=== PATIENT | male | born 1995 | race Caucasian/White ===

== ENCOUNTER 2022-09-01 19:33 | Emergency (ER) | payer OTHER, SELFPAY ==
[2022-09-01 19:50] VITALS: BP 151/97; PULSE 66; RESP 16; TEMP 36.7; O2SAT 98; BMI 24.9
--- NOTE | 2022-09-01 19:58 | ED_ITS ---
HPI - Abdominal Pain General Time Seen by Provider: 19:58 Date Seen: 09/01/22 Chief Complaint: Abdominal Pain Stated Complaint: Abdominal/Groin Pain Time Seen by Provider: 09/01/22 19:57 Source: patient and RN notes reviewed Mode of arrival: ambulatory Limitations: no limitations History of Present Illness HPI narrative: Patient is a very pleasant 27-year-old gentleman with a history of abdominal discomfort who comes to the [facility] for re-evaluation of 10 days of abdominal pain. Patient notes that 10 days ago he ate some spicy food on the next day woke up with mid abdominal discomfort. It seemed to be more upper abdominal initially but has now changed. Four days ago he was seen at the [facility] and was diagnosed with acid reflux and put on from 40 mg of pantoprazole daily. After 2 days he did not feel that it helped. He was in conversation with a friend of his who is a physician and was told to try Pepto- Bismol. He felt like Pepto-Bismol possibly helped 20-30% initially and yesterday felt about 60% better. He does note that he had black stools and was worried about it. He notes that 4 days ago when evaluated he had no blood in his stool. He does realize that the dark stools are likely secondary to the Pepto-Bismol. He notes today however the pain is increasing any rates this as 08/14. It is in the lower abdomen and suprapubic areas. It does not radiate into his testicles. He does note that he has some mild discomfort or burning sensation when he urinates. Walking actually helps his discomfort. He denies diarrhea or constipation. He notes a purposeful 15 lb weight loss last year while working out at the gym. He notes that he is on cetirizine daily as he has a history of hives. He has no known personal or family history of Crohn's disease or ulcerative colitis. In the past he has had upper endoscopy in [place] along with lab values that were all normal. This was approximately 7 months ago. He is very concerned about his insurance and cost of the visit to the [place]. Patient notes that he has tried bland foods especially yogurt and coconut water. Occasionally has had spicy foods. He has not tried any ibuprofen but has tried Tylenol and it has not really helped. No line Patient does have gallbladder scan scheduled for September in [place]. Related Data Home Medications Medication Instructions Recorded Confirmed cetirizine .ROUTE 09/01/22 pantoprazole 40 mg tablet,delayed 40 mg PO DAILY 09/01/22 09/01/22 release Allergies Allergy/AdvReac Type Severity Reaction Status Date / Time No Known Drug Allergies Allergy Verified 09/01/22 19:55 Review of Systems Status of ROS Reports: 10 or more systems reviewed and unremarkable except as noted in History and below Const Denies: fever, chills, change in weight or fatigue ENMT Denies: throat pain or difficulty swallowing Cardio Denies: chest pain, swelling of feet/ankles, lightheadedness or shortness of breath with exertion Resp Denies: shortness of breath or cough GI Reports: abdominal pain; Denies: nausea, vomiting, diarrhea, constipation, difficulty swallowing or blood in stool Reports: painful urination and other (Denies worries about sexually transmitted infection); Denies: urinary frequency, urinary urgency, blood in urine or genital pain Musculo Denies: back pain Integ/Breast Denies: rash Endo Denies: excessive urination, excessive thirst or fatigue PFSH PFSH Social History Smoking Status: Never smoker Do you use any of these nicotine containing products: None How often do you have a drink containing alcohol: never AUDIT-C Alcohol total score: 0 Non-prescribed substance use: denies use Exam Narrative: Exam Narrative: Alert and oriented does seem very concerned about current discomfort. Mentation normal. Heart with a regular rate and rhythm. Lungs are clear bilaterally. Abdomen shows discomfort with tenderness in the suprapubic and left lower quadrant without rebound. Tenderness without any masses palpated in the right groin but no evidence of bulging or hernia. Palpation of testicles bilaterally without tenderness. Bowel sounds present and are normal. Const: Vital Signs, click to edit/add: Vital Signs - 24 hr 09/01/22 19:50 Temperature 98.1 F Pulse Rate [Left P ulse Oximeter] 66 Respiratory Rate 16 Blood Pressure [Ri ght Upper Arm] 151/97 H Pulse Oximetry 98 Oxygen Delivery Me thod Room Air Documenting provider has reviewed patient's vital signs: yes Course Course Hospital Course: At this time differential diagnosis includes but is not limited to viral enteritis, colitis, Crohn's disease, ulcerative colitis, anxiety, intestinal colic, appendicitis, urinary tract infection, STI. Patient denies any possibility of STI at this time. He is agreeable to urinalysis as he is having some discomfort with urination. He is very worried regarding cost of care. At this time I do tell him I would recommend urinalysis, CBC, comprehensive upon a panel, CRP and if these are reassuring I would not pursue a CT or imaging at this time but would rather have him follow-up at the [facility] with the GI specialist and establish with primary care. He has a recent stool studies that were all negative although I do not see an O&P. Patient initially agreeable to urinalysis. If this is normal we will speak about further blood testing. Reevaluation(s) Reevaluation #1: Patient notes that he is feeling approximately 50% better after taking ibuprofen. He is given food with this as well. We speak extensively again regarding test that I would recommend ordering. I did state that if he wanted to wait as his urine has come back normal he may do this at the clinic. After discussion, he elects to go ahead and with the CBC, CRP and comprehensive panel. If normal he would be discharged home with follow-up at the clinic. Reevaluation #2: Patient noted to be feeling better after medications. He is told that his blood tests have all been normal. Including white count and CRP. Vital Signs Vital signs: Initial Vital Signs Temperature 98.1 F 09/01/22 19:50 Temperature Source Temporal Artery Scan 09/01/22 19:50 Pulse Rate 66 09/01/22 19:50 Respiratory Rate 16 09/01/22 19:50 Blood Pressure 151/97 H 09/01/22 19:50 Blood Pressure Mean 115 H 09/01/22 19:50 Blood Pressure Position Sitting 09/01/22 19:50 Pulse Oximetry 98 09/01/22 19:50 Oxygen Delivery Method Room Air 09/01/22 19:50 Vital Signs Temperature 98.1 F 09/01/22 19:50 Pulse Rate 66 09/01/22 19:50 Respiratory Rate 16 09/01/22 19:50 Blood Pressure 151/97 H 09/01/22 19:50 Pulse Oximetry 98 09/01/22 19:50 Oxygen Delivery Method Room Air 09/01/22 19:50 Temperature 98.1 F 09/01/22 19:50 Pulse Rate 66 09/01/22 19:50 Respiratory Rate 16 09/01/22 19:50 Blood Pressure 151/97 H 09/01/22 19:50 Pulse Oximetry 98 09/01/22 19:50 Oxygen Delivery Method Room Air 09/01/22 19:50 MDM - Abdominal Pain MDM Narrative Medical decision making narrative: 1. Abdominal pain -at this time urinalysis and abdominal labs all within normal limits. Do not think this is appendicitis is patient has no discomfort in the right lower quadrant. Do not think this is a GI bleed as his hemoglobin is 15.5 and he has no evidence of blood in recent stool studies. I do not think this is infectious as his white count and CRP are normal. I do not see any evidence of intestinal hernia or urinary tract infection. Patient does ask me what I think this could be an IM honest with him and that I cannot answer him. However there are no abnormal labs or worrisome findings on his exam to indicate a life- threatening emergency at this time. I would like him to follow up with the [facility] for further evaluation. I did stress to him the importance of sticking with 1 clinic at this time as he seems to be hopping around to different facilities and this would not be in his best interest. I did try to explain to him that he really needs to have 1 physician coordinating evaluation and follow-up in regards to his discomfort. He is in agreement with this. I did not do a CT tonight given his reassuring lab findings, improvement on ibupro fen and no red flag symptoms or exam findings tonight. He is in agreement with not pursuing CT. 2. Dysuria-normal urinalysis with normal testicular exam 3. Disposition-home at this time. Return for worsening symptoms including high fever, increasing pain, vomiting of blood or blood in stool. Follow-up with [facility] Dr. Tavon bhatia establish with primary care. Lab Data Attestation: I reviewed the patient's lab results. Labs: Lab Results 09/01/22 09/01/22 Range/Units 20:00 20:57 WBC 8.07 (4.50-11.00) K/uL RBC 5.22 (4.30-5.90) m/uL Hgb 15.5 (13.5-17.5) gm/dL Hct 45.6 (37.0-53.0) % MCV 87 (80-100) fL MCH 30 (26-34) pg MCHC 34 (32-36) gm/dL RDW Coeff of Kike 12.4 (11.5-15.5) % Plt Count 310 (140-440) K/uL Neut % (Auto) 57.1 (42.0-72.0) % Lymph % (Auto) 32.8 (20-44) % [place] % (Auto) 6.3 (0.0-11.0) % Eos % (Auto) 3.3 (0.0-7.0) % Baso % (Auto) 0.4 (0.0-3.0) % Neut # (Auto) 4.60 (1.7-7.0) K/uL Lymph # (Auto) 2.65 (0.90-2.90) K/uL [place] # (Auto) 0.50 (0.00-0.90) K/UL Eos # (Auto) 0.27 (0.00-0.50) K/uL Baso # (Auto) 0.03 (0.00-0.30) K/uL Sodium 138 (135-149) mmol/L Potassium 4.0 (3.6-5.1) mmol/L Chloride 104 (96-114) mmol/L Carbon Dioxide 26 (20-32) mmol/L BUN 11 (5-24) mg/dL Creatinine 0.7 (0.5-1.5) mg/dL Estimated Creat Clear 146.89 Estimated GFR 129 ml/min Glucose 99 (60-115) mg/dL Calcium 10.0 (8.4-10.6) mg/dL Total Bilirubin 0.4 (0.1-1.5) mg/dL AST 21 (12-35) U/L ALT 19 (4-50) U/L Alkaline Phosphatase 42 (40-150) U/L C-Reactive Protein < 0.5 L (0.5-1.0) mg/dL Total Protein 7.8 (6.0-8.3) g/dL Albumin 4.9 (3.3-5.0) g/dL Urine Color Yellow (Yellow) Urine Appearance Clear (Clear) Urine pH 7.5 (5.0-8.5) Ur Specific [place] 1.020 (1.000-1.030) Urine Protein Negative (Negative) Urine Glucose (UA) Negative (Negative) Urine Ketones Negative (Negative) Urine Blood Trace-intact A (Negative) Urine Nitrite Negative (Negative) Urine Bilirubin Negative (Negative) Urine Urobilinogen 0.2 (0.2-1.0) Ur Leukocyte Esterase Negative (Negative) Urine RBC 0-2 (0-2) Urine WBC 0-2 (0-5) Ur Squamous Epith Cells Few (None-Few) Urine Bacteria None (None) Discharge Plan Discharge Clinical Impression: Abdominal pain Patient Disposition: Home, Self-Care Additional Instructions: Follow-up with the [facility]. Dr. Montes De Oca is the physician specializing in gastrointestinal problems. If he is not available follow-up with any of their primary care physician's. Dr. Metcalf, Efraín, Jacky Howard or Dr. Iverson are all good options. Ibuprofen may be used 600 mg every 8 hours as needed for discomfort. Take with food. Prescriptions: No Action pantoprazole 40 mg tablet,delayed release (DR/EC) 40 mg PO DAILY cetirizine [All Day Allergy (cetirizine)] .ROUTE Follow Up/Referrals: Provider,Not a Local [Primary Care Provider] - Stand Alone Forms: [facility] Info Instructions
[2022-09-01 20:08] LABS: Appearance Urine Clear (Clear); Bilirubin Urine Negative (Negative); Blood Urine Trace-intact (Negative); Color Urine Yellow (Yellow); Glucose Urine Negative (Negative); Ketones Urine Negative (Negative); Leukocyte Esterase Urine Negative (Negative); Nitrite Urine Negative (Negative); Protein Urine Negative (Negative); Urobilinogen Urine 0.2 (0.2-1.0); pH Urine 7.5 (5.0-8.5)
[2022-09-01 20:27] LABS: RBC Urine 0-2 (0-2); Squamous Epithelial Cell Urine Few (None-Few); WBC Urine 0-2 (0-5)
[2022-09-01] MEDS: IBUPROFEN 200 MG TABLET 600 MG PO (20:32)
[2022-09-01 21:02] LABS: Hematocrit 45.6 % (37.0-53.0); Hemoglobin* 15.5 gm/dL (13.5-17.5); Mean Corpuscular HGB Conc 34 gm/dL (32-36); Mean Corpuscular Hemoglobin 30 pg (26-34); Mean Corpuscular Volume 87 fL (80-100); Neutrophils Percent Auto 57.1 % (42.0-72.0); Platelet Count* 310 K/uL (140-440); RDW Coefficient of Variation % 12.4 % (11.5-15.5); Red Blood Count 5.22 m/uL (4.30-5.90); White Blood Count* 8.07 K/uL (4.50-11.00)
[2022-09-01 21:03] LABS: Basophils Absolute Auto 0.03 K/uL (0.00-0.30); Basophils Percent Auto 0.4 % (0.0-3.0); Eosinophils Absolute Auto 0.27 K/uL (0.00-0.50); Eosinophils Percent Auto 3.3 % (0.0-7.0); Immature Granulocytes Abs Auto 0.01 K/uL (0.00-0.30); Immature Granulocytes Pct Auto 0.1 %; Lymphocytes Absolute Auto 2.65 K/uL (0.90-2.90); Lymphocytes Percent Auto 32.8 % (20-44); Monocytes Percent Auto 6.3 % (0.0-11.0)
[2022-09-01 21:06] LABS: Slide Review Reflex No
[2022-09-01 21:14] LABS: Chloride* 104 mmol/L (96-114)
[2022-09-01 21:15] LABS: Albumin* 4.9 g/dL (3.3-5.0); Sodium* 138 mmol/L (135-149)
[2022-09-01 21:17] LABS: Creatinine* 0.7 mg/dL (0.5-1.5); Est. Creatinine Clearance* 146.89; Estimated Glomerular Filt Rate 129 ml/min
[2022-09-01 21:18] LABS: Alanine Aminotransferase* 19 U/L (4-50); Alkaline Phosphatase* 42 U/L (40-150); Aspartate Amino Transferase* 21 U/L (12-35); Bilirubin Total* 0.4 mg/dL (0.1-1.5); Blood Urea Nitrogen* 11 mg/dL (5-24); Carbon Dioxide* 26 mmol/L (20-32); Glucose* 99 mg/dL (60-115); Total Protein* 7.8 g/dL (6.0-8.3)
[2022-09-01 21:22] LABS: C Reactive Protein* < 0.5 mg/dL (0.5-1.0)
== END 2022-09-01 22:20 | disposition home or self-care (01) ==
PROVIDERS: Emergency Provider Family Medicine
DX: R10.9 Unspecified abdominal pain (principal)
CPT/HCPCS: 36415; 80053; 81003; 81015; 85025; 86140; 99283; 99284; A9270